=== PATIENT | female | born 1940 | race Caucasian/White ===

== ENCOUNTER 2016-09-30 11:13 | Day surgery (SDC) | payer MEDICARE, OTHER ==
--- NOTE | ~2016-09-30 | EGD ---
EGD REPORT [facility] [address] [place] [address] NAME: PACO GOMEZ : [birth year] STATUS : REG [facility]#: [id number] AGE: 76 ADM/REG DATE : 09/30/16 MR#: [id number] REPORT SERV DATE: 09/30/16 DICTATED BY: CARL TATE DATE: 09/30/16 REPORT STATUS : Draft TRANSCRIBED BY: [facility] DATE: 09/30/16 Endoscopy Center Patient Name: Paco Gomez Date of : 1940 Attending MD: CARL TATE MD Procedure Date No Time: 09/30/2016 Procedure: Colonoscopy Indications: High risk colon cancer surveillance: Personal history of colonic polyps, Last colonoscopy: June 2013 Referring MD: JAY ESPINOZA Medicines: See the Anesthesia note for documentation of the administered medications Complications: No immediate complications. Procedure: Pre-Anesthesia Assessment: - ASA Grade Assessment: III - A patient with severe systemic disease. After I obtained informed consent, the scope was passed under direct vision. Throughout the procedure, the patient's blood pressure, pulse, and oxygen saturations were monitored continuously. The PCF [id number] was introduced through the anus and advanced to the cecum, identified by appendiceal orifice and ileocecal valve. The colonoscopy was performed without difficulty. The patient tolerated the procedure well. The quality of the bowel preparation was adequate. Findings: The perianal and digital rectal examinations were normal. Internal hemorrhoids were found during retroflexion and were small. Impression: - Internal hemorrhoids. Recommendation: - Patient has a contact number available for emergencies. The signs and symptoms of potential delayed complications were discussed with the patient. Return to normal activities tomorrow. Written discharge instructions were provided to the patient. - Regular diet. - Continue present medications. - Repeat colonoscopy is not recommended for surveillance. Procedure Code(s): --- Professional --- 09333, Colonoscopy, flexible, proximal to splenic flexure; diagnostic, with or without collection of specimen(s) by brushing or washing, with or without EGD REPORT [facility] [address] [place]. [address] NAME: PACO GOMEZ : [birth year] STATUS : REG [facility] PAT#: [id number] AGE: 76 ADM/REG DATE : 09/30/16 MR#: [id number] REPORT SERV DATE: 09/30/16 DICTATED BY: CARL TATE DATE: 09/30/16 REPORT STATUS : Draft TRANSCRIBED BY: [facility] [employer] DATE: 09/30/16 colon decompression (separate procedure) Diagnosis Code(s): --- Professional --- K64.8, Other hemorrhoids Z86.010, Personal history of colonic polyps CPT copyright 2013 [employer]. All rights reserved. The codes documented in this report are preliminary and upon welder production line arc review may be revised to meet current compliance requirements. Carl Tate MD CARL TATE MD 09/30/2016 1:12 PM This report has been signed electronically. Number of Addenda: 0 Note Initiated On: 09/30/2016 12:40 PM Scope Withdrawal Time 0 hours 7 minutes 20 seconds [address] [place] [address]
--- NOTE | ~2016-09-30 | EGD ---
EGD REPORT [facility] [address] [place] [address] NAME: PACO GOMEZ : [birth year] STATUS : REG [facility]#: [id number] AGE: 76 ADM/REG DATE : 09/30/16 MR#: [id number] REPORT SERV DATE: 09/30/16 DICTATED BY: CARL TATE DATE: 09/30/16 REPORT STATUS : Draft [facility] DATE: 09/30/16 Endoscopy Center Patient Name: Paco Gomez Date of : 1940 Attending MD: CARL TATE MD Procedure Date No Time: 09/30/2016 Procedure: Upper GI endoscopy Indications: Epigastric abdominal pain, Dysphagia, Gastro-esophageal reflux disease Referring MD: JAY ESPINOZA Medicines: See the Anesthesia note for documentation of the administered medications Complications: No immediate complications. Procedure: Pre-Anesthesia Assessment: - ASA Grade Assessment: III - A patient with severe systemic disease. After obtaining informed consent, the endoscope was passed under direct vision. Throughout the procedure, the patient's blood pressure, pulse, and oxygen saturations were monitored continuously. The GIF H190 [id number] was introduced through the mouth, and advanced to the second part of duodenum. The upper GI endoscopy was accomplished without difficulty. The patient tolerated the procedure well. Findings: The examined duodenum was normal. The gastric antrum was normal. Biopsies were taken with a cold forceps for histology. The cardia and gastric fundus were normal on retroflexion. A small hiatus hernia was present. Impression: - Normal examined duodenum. - Normal antrum. Biopsied. - Hiatus hernia. Recommendation: - Patient has a contact number available for emergencies. The signs and symptoms of potential delayed complications were discussed with the patient. Return to normal activities tomorrow. Written discharge instructions were provided to the patient. - Regular diet. - Continue present medications. - FOR YOUR BIOPSY RESULTS: Please go to [email or web address] and register to receive your EGD REPORT [address] [address] NAME: PACO GOMEZ : [birth year] STATUS : REG [facility] PAT#: [id number] AGE: 76 ADM/REG DATE : 09/30/16 MR#: [id number] REPORT SERV DATE: 09/30/16 DICTATED BY: CARL TATE DATE: 09/30/16 REPORT STATUS : Draft TRANSCRIBED BY: [employer] DATE: 09/30/16 results via the portal. Your biopsy results will be posted there in about 7 to 10 days. IF you do not see result in 10 days, call office. Procedure Code(s): --- Professional --- 09105, Esophagogastroduodenoscopy, flexible, transoral; with biopsy, single or multiple Diagnosis Code(s): --- Professional --- K44.9, Diaphragmatic hernia without obstruction or gangrene R10.13, Epigastric pain R13.10, Dysphagia, unspecified K21.9, Gastro-esophageal reflux disease without esophagitis CPT copyright 2013 [employer]. All rights reserved. The codes documented in this report are preliminary and upon electrocardiograph operator review may be revised to meet current compliance requirements. Carl Tate MD CARL TATE MD 09/30/2016 12:58 PM This report has been signed electronically. Number of Addenda: 0 Note Initiated On: 09/30/2016 12:46 PM Scope Withdrawal Time 0 hours 0 minutes 0 seconds [id number] [place] [id number]
[~2016-09-30 11:13] MED LIST: ACET500CAP PO; ASAB PO; AT25 PO; B121000P IM; CEFT5 PO; CYMBALTA60 PO; DULERA 100 MCG/13 GM INH; EFFEXOR XR150 MG PO; FLEXERIL5 MG PO; HALF81 PO; LEVOTHYROXIN50 MCG PO; LEVOTHYROXIN88 MCG PO; LIDODERM T; LIDODERM TOP; LIOR10 PO; MSCONT15 PO; NEXIUM40 PO; OXYCOD PO; OXYCONTIN15 MG PO; P10 PO; PAXIL30 MG PO; PERCOCET1 TA4 PO; PROAIR HFA INH; SPIRIVA INH; SYMBICORT 160/41 INH INH; SYMBICORT 80/4.1 INH INH; SYN1 PO; SYN88 PO; TYLENOL PM PO; V5 PO; VALIUM10 MG PO; ZOFRANODT8 PO; [UNRECOGNIZED DRUG - OTHER] PO; [UNRECOGNIZED DRUG - OTHER] PO; [UNRECOGNIZED DRUG - REMARK]; [UNRECOGNIZED DRUG - REMARK] SL
== END 2016-09-30 23:59 | disposition home or self-care (01) ==
LOC: DMU 11:13
PROVIDERS: Internal Medicine Gastroenterology
PROC: 0DB68ZX Excision of Stomach, Via Natural or Artificial Opening Endoscopic, Diagnostic (ICD-10-PCS; principal; 2016-09-30 13:00)
PROC: 0DJD8ZZ Inspection of Lower Intestinal Tract, Via Natural or Artificial Opening Endoscopic (ICD-10-PCS; 2016-09-30 13:00)
DX: K64.8 Other hemorrhoids (principal); K44.9 Diaphragmatic hernia without obstruction or gangrene; K21.9 Gastro-esophageal reflux disease without esophagitis; J45.909 Unspecified asthma, uncomplicated; G25.81 Restless legs syndrome; J44.9 Chronic obstructive pulmonary disease, unspecified; E03.9 Hypothyroidism, unspecified; M19.90 Unspecified osteoarthritis, unspecified site; M79.7 Fibromyalgia; F32.9 Major depressive disorder, single episode, unspecified; F41.9 Anxiety disorder, unspecified; Z86.010 Personal history of colon polyps; Z87.440 Personal history of urinary (tract) infections; Z88.1 Allergy status to other antibiotic agents; Z88.5 Allergy status to narcotic agent; Z88.8 Allergy status to other drugs, medicaments and biological substances; Z96.651 Presence of right artificial knee joint; Z90.49 Acquired absence of other specified parts of digestive tract; Z90.710 Acquired absence of both cervix and uterus; Z98.890 Other specified postprocedural states; Z79.82 Long term (current) use of aspirin; Z79.899 Other long term (current) drug therapy
CPT/HCPCS: 88305